=== PATIENT | female | born 1995 | race Caucasian/White ===

== ENCOUNTER 2017-04-12 18:00 | Emergency (ER) | payer MEDICAID, OTHER ==
[2017-04-12] MEDS ORDERED: FAMOTIDINE 20 MG TABLET PO ONE (19:27)
[2017-04-12] MEDS ORDERED: METHYLPREDNISOLONE INJ 125 MG/2 ML SDV IM ONE (19:27)
--- NOTE | 2017-04-12 19:33 | ER Document Report ---
HPI - HPI Pain Level: 2 Notes: Patient is a 22-year-old female presents the ED complaining of an allergic reaction to exposure to peanuts. Patient states that she does carry an EpiPen for this instance, but did not have to use at this time. Patient states that she came in contact with the patient that most of had peanuts as a snack prior. Patient states that she did take 50 mg of Benadryl 2-1/2 hours ago which helped. Patient states that it started out with a rash and some tightness in her throat, but both of those symptoms have improved since the Benadryl. Patient states she is still able to eat and drink without any difficulties. She has not had any trouble swallowing or breathing. Denies any fever, headache , chest pain, syncope, palpitations, cough, wheeze, shortness of breath, abdominal pain, nausea/vomiting/diarrhea, dysuria, joint pains. Patient states that she is allergic to prednisone as it caused a GI upset and made her "throat feel funny" but that was given during an allergic reaction previously. Patient states that she has had Solu-Medrol in the past without any difficulties. Denies any other significant past medical history or daily medications. Patient states she was very recently so she does not have a PCM. Denies any smoking or illicit drug use. - ROS Notes: REVIEW OF SYSTEMS: CONSTITUTIONAL : Denies fever, chills, or sweats. Denies recent illness. EENT: see hpi CARDIOVASCULAR: Denies chest pain. Denies palpitations or racing or irregular heart beat. Denies ankle edema. RESPIRATORY: see hpi GASTROINTESTINAL: Denies abdominal pain or distention. Denies nausea, vomiting , or diarrhea. Denies blood in vomitus, stools, or per rectum. Denies black, tarry stools. Denies constipation. GENITOURINARY: Denies difficulty urinating, painful urination, burning, frequency, blood in urine, or discharge. MUSCULOSKELETAL: Denies back or neck pain or stiffness. Denies joint pain or swelling. SKIN: see hpi NEUROLOGICAL: Denies confusion or altered mental status. Denies passing out or loss of consciousness. Denies dizziness or lightheadedness. Denies headache. Denies weakness or paralysis or loss of use of either side. Denies problems with gait or speech. Denies sensory loss, numbness, or tingling. Denies seizures. PSYCHIATRIC: Denies anxiety or stress. Denies depression, suicidal ideation, or homicidal ideation. ALL OTHER SYSTEMS REVIEWED AND NEGATIVE. Dictation was performed using [employer] voice recognition software - DERM Skin Color: Normal Past Medical History - Social History Smoking Status: Never Smoker Family History: Reviewed & Not Pertinent Patient has suicidal ideation: No Patient has homicidal ideation: No Renal/ Medical History: Denies: Hx Peritoneal Dialysis Vertical Provider Document - CONSTITUTIONAL Agree With Documented VS: Yes Notes: PHYSICAL EXAMINATION: GENERAL: Well-appearing, well-nourished and in no acute distress. HEAD: Atraumatic, normocephalic. EYES: Pupils equal round and reactive to light, extraocular movements intact, sclera anicteric, conjunctiva are normal. ENT: EAC clear b/l. TM's intact b/l without erythema, fluid, or perforation. Nares patent and without discharge. oropharynx clear without exudates. No tonsilar hypertrophy or erythema. Moist mucous membranes. No sinus tenderness. No facial swelling or angioedema noted. NECK: Normal range of motion, supple without lymphadenopathy. No rigidity. LUNGS: Breath sounds clear to auscultation bilaterally and equal. No wheezes rales or rhonchi. HEART: Regular rate and rhythm without murmurs, rubs, gallops. Musculoskeletal: FROM to passive/active. Strength 5+/5. Extremities: No cyanosis, clubbing, or edema b/l. Peripheral pulses 2+. Capillary refill less than 3 seconds. NEUROLOGICAL: Cranial nerves grossly intact. Normal speech, normal gait. Normal sensory, motor exams PSYCH: Normal mood, normal affect. SKIN: Warm, Dry, normal turgor, no rashes or lesions noted. - INFECTION CONTROL TRAVEL OUTSIDE OF THE [place] IN LAST 30 DAYS: No - RESPIRATORY O2 Sat by Pulse Oximetry: 100 Course - Re-evaluation Re-evalutation: 04/12/17 20:25 Patient is afebrile, well-hydrated, 22-year-old female presents to the ED status post mild allergic reaction based on H&P. Vitals are stable. PE otherwise unremarkable. Low suspicion for any sepsis, systemic illness, respiratory compromise, angioedema, or any other anaphylactic reaction at this time. Patient has already taken 50 mg of Benadryl prior to arrival. I will add Pepcid 20 mg p.o. today along with Solu-Medrol 125 mg IM. Patient states that she has tolerated Solu-Medrol in the past without any difficulties. Pt noticed improvement after 45 mins. Conservative measures otherwise for symptoms. Allergy precautions reviewed. Recheck/establish with a PCM this week. Return to ED with any worsening/concerning symptoms otherwise as reviewed in discharge. Patient is in agreement. - Vital Signs Vital signs: Temp Pulse Resp BP Pulse Ox 98.9 F 59 L 14 121/63 100 04/12/17 18:17 04/12/17 18:17 04/12/17 18:17 04/12/17 18:17 04/12/17 18:17 Discharge - Discharge Clinical Impression: Allergic reaction Qualifiers: Encounter type: initial encounter Qualified Code(s): T78.40XA - Allergy, unspecified, initial encounter Condition: Stable Disposition: HOME, SELF-CARE Instructions: Acute Allergic Reaction ([facility]), Use of Diphenhydramine, Steroid Medication Injection Additional Instructions: Maintain adequate fluid intake Use oral Benadryl and oral Pepcid as needed May apply topical Benadryl/cortisone as needed Avoidance of allergens encouraged Use EpiPen with any impending respiratory compromise Recheck/establish with a PCM this week Consider consult with an fly raiser lockstitch Return to the ED with any worsening symptoms and/or development of fever, headache, swelling of lips/tongue/throat, chest pain, palpitations, syncope, shortness of breath, trouble breathing, abdominal pain, n/v/d, numbness/tingling , or other worsening symptoms that are concerning to you. Referrals: [facility] [Provider Group] - Follow up as needed [facility] [Provider Group] - Follow up as needed [facility] [Provider Group] - Follow up as needed
[2017-04-12 20:34] VITALS: BP 102/54
== END 2017-04-12 20:34 | disposition home or self-care (01) ==
LOC: ER 18:00
DX: T78.1XXA Other adverse food reactions, not elsewhere classified, initial encounter (principal); R21 Rash and other nonspecific skin eruption; R09.89 Other specified symptoms and signs involving the circulatory and respiratory systems; X58.XXXA Exposure to other specified factors, initial encounter; Z88.8 Allergy status to other drugs, medicaments and biological substances
CPT/HCPCS: 99283; 96372; J2930

== ENCOUNTER → 2017-10-07 | Outpatient (CLI) | payer SELFPAY ==
--- NOTE | 2017-10-07 16:35 | RADIOLOGY REPORT (SQ) ---
EXAM DESCRIPTION: U/S [id number] TRNABD 1GES W/ODOP COMPLETED DATE/TIME: 10/07/2017 2:57 pm REASON FOR STUDY: FIRST TRIMESTER SIZE/DATES Z34.81 ENCOUNTER FOR SUPRVSN OF NORMAL , FIRS T TRIM COMPARISON: None. TECHNIQUE: Transabdominal static and realtime grayscale images acquired of the pelvis. Additional se lected spectral and color Doppler images recorded. All images stored on PACs. bHCG: Not applicable. LIMITATIONS: None. FINDINGS: FETUS: Living intrauterine . EGA: 10 week. KAYCEE: 05/05/2018. FHR: 162 beats per minute. SUBCHORIONIC BLEED: No. SIZE OF BLEED: Not applicable. UTERUS: No masses. No anomalies. CERVICAL LENGTH: 3.2 cm. Closed. RIGHT ADNEXA: Normal ovary with normal vascular flow. No adnexal free fluid. No adnexal masses. LEFT ADNEXA: Ovary not identified. No adnexal free fluid. No adnexal masses. FREE FLUID: None. OTHER: No other significant finding. IMPRESSION: LIVING INTRAUTERINE . EGA 10 WEEK. Trimester of : First - 0 to 13 weeks. TECHNICAL DOCUMENTATION: JOB ID: [id number] [employer]- All Rights Reserved
== END ==
LOC: RAD 14:17
PROVIDERS: ATTEND Nurse Practitioner Women's Health
DX: Z34.81 Encounter for supervision of other normal pregnancy, first trimester (principal)
CPT/HCPCS: 76801

== ENCOUNTER 2017-12-08 20:36 | Emergency (ER) | payer MEDICAID ==
[2017-12-08] MEDS ORDERED: DIPHENHYDRAMINE HCL 25 MG CAPSULE PO ONE (20:57)
[2017-12-08] MEDS ORDERED: FAMOTIDINE 20 MG TABLET PO ONE (20:57)
--- NOTE | 2017-12-08 20:57 | ER Document Report ---
ED Skin Rash/Insect Bite/Abscs - General Chief Complaint: Rash Stated Complaint: POSSIBLE ALLERGIC REACTION/RASH Time Seen by Provider: 12/08/17 20:50 Mode of Arrival: Ambulatory Information source: Patient Notes: Patient is a 22-year-old approximately 20 weeks who presents to the ER today for redness to bilateral lower legs that started this afternoon. Patient admits to using new dryer sheets but that is the only thing new that she can think of, no new soaps, detergents, clothes, pets or foods that she can think of that she may have used. She states that she took half a Benadryl and seems to be improving. She denies any rash anywhere else, shortness of breath, difficulty breathing or chest tightness. She denies any history of this before. TRAVEL OUTSIDE OF THE [place] IN LAST 30 DAYS: No - Related Data Allergies/Adverse Reactions: latex Allergy (Verified 12/08/17 20:37) prednisone Allergy (Verified 12/08/17 20:37) sulfamethoxazole [From Bactrim] Allergy (Verified 12/08/17 20:37) trimethoprim [From Bactrim] Allergy (Verified 12/08/17 20:37) Past Medical History - General Information source: Patient - Social History Smoking Status: Never Smoker Family History: Reviewed & Not Pertinent Renal/ Medical History: Denies: Hx Peritoneal Dialysis Past Surgical History: Reports: Hx Cholecystectomy, Hx Tonsillectomy - Immunizations Hx Diphtheria, Pertussis, Tetanus Vaccination: Yes Review of Systems - Review of Systems Constitutional: No symptoms reported EENT: No symptoms reported Cardiovascular: No symptoms reported Respiratory: No symptoms reported Gastrointestinal: No symptoms reported Genitourinary: No symptoms reported Female Genitourinary: No symptoms reported Musculoskeletal: No symptoms reported Skin: See HPI Hematologic/Lymphatic: No symptoms reported Neurological/Psychological: No symptoms reported Physical Exam - Vital signs Vitals: Temp Pulse Resp BP Pulse Ox 98.4 F 83 18 121/72 99 12/08/17 20:41 12/08/17 20:41 12/08/17 20:41 12/08/17 20:41 12/08/17 20:41 - Notes Notes: PHYSICAL EXAMINATION: GENERAL: Well-appearing and in no acute distress. HEAD: Atraumatic, normocephalic. EYES: Pupils equal round and reactive to light, extraocular movements intact, sclera anicteric, conjunctiva are normal. ENT: ear canals without erythema or foreign body, TMs pearly núñez with good bony landmarks, nares patent, oropharynx clear without exudates. Moist mucous membranes. Airway patent NECK: Normal range of motion, supple without lymphadenopathy LUNGS: CTAB and equal. No wheezes rales or rhonchi. HEART: Regular rate and rhythm without murmurs EXTREMITIES: Normal range of motion, no pitting edema. No cyanosis. NEUROLOGICAL: Cranial nerves grossly intact. Normal sensory/motor exams. PSYCH: Normal mood, normal affect. SKIN: Warm, Dry, normal turgor, no rashes or lesions noted Course - Re-evaluation Re-evalutation: 12/08/17 22:44 Patient has no rash on arrival to the emergency department. I did however give her Pepcid and another Benadryl to make sure rash did not return and she tolerated well. Patient was watched here for approximately an hour and a half and had no rash. Patient to continue Pepcid and Benadryl at home especially if rash returns. - Vital Signs Vital signs: Temp Pulse Resp BP Pulse Ox 98.4 F 83 18 121/72 99 12/08/17 20:41 12/08/17 20:41 12/08/17 20:41 12/08/17 20:41 12/08/17 20:41 Discharge - Discharge Clinical Impression: Rash and nonspecific skin eruption Condition: Stable Disposition: HOME, SELF-CARE Additional Instructions: Keep taking Benadryl every 4 hours as needed for rash. Return immediately for any new or worsening symptoms. Follow up with primary care provider, call tomorrow to make followup appointment. Prescriptions: Famotidine [Pepcid 20 mg Tablet] 20 mg PO BID #12 tablet
[2017-12-08 23:05] VITALS: BP 103/54
== END 2017-12-08 23:11 | disposition home or self-care (01) ==
LOC: ER 20:36
DX: O26.899 Other specified pregnancy related conditions, unspecified trimester (principal); R21 Rash and other nonspecific skin eruption; Z3A.00 Weeks of gestation of pregnancy not specified; Z91.040 Latex allergy status; Z88.8 Allergy status to other drugs, medicaments and biological substances; Z88.1 Allergy status to other antibiotic agents
CPT/HCPCS: 99282; J3490 ×2

== ENCOUNTER 2017-12-17 14:47 | Outpatient (CLI) | payer MEDICAID ==
[2017-12-17 15:41] LABS: APPEARANCE,URINE SLIGHTLY-CLOUDY; BILIRUBIN,URINE NEGATIVE (NEGATIVE); COLOR,URINE YELLOW; GLUCOSE, URINE NEGATIVE (NEGATIVE); KETONES,URINE NEGATIVE (NEGATIVE); LEUKOCYTE ESTERASE,URINE SMALL (NEGATIVE); NITRITE,URINE NEGATIVE (NEGATIVE); PROTEIN,URINE NEGATIVE (NEGATIVE); URINE SPECIFIC GRAVITY 1.009; UROBILINOGEN,URINE NEGATIVE mg/dL (<2.0)
[2017-12-17 15:59] LABS: URINE AMPHETAMINES SCREEN NEGATIVE; URINE BARBITURATES SCREEN NEGATIVE; URINE BENZODIAZEPINES SCREEN NEGATIVE; URINE COCAINE SCREEN NEGATIVE; URINE MARIJUANA (THC) SCREEN NEGATIVE; URINE METHADONE SCREEN NEGATIVE; URINE PHENCYCLIDINE SCREEN NEGATIVE
--- NOTE | 2017-12-17 17:47 | RADIOLOGY REPORT (SQ) ---
EXAM DESCRIPTION: U/S OB LIMITED COMPLETED DATE/TIME: 12/17/2017 4:34 pm REASON FOR STUDY: cervical length, 20.5week IUP, cervical length COMPARISON: 10/07/2017 TECHNIQUE: Limited transvaginal and transabdominal grayscale ultrasound for evaluation of specific r equested obstetrical parameters. LIMITATIONS: None. FINDINGS: CERVICAL LENGTH: 3.8 cm Closed. FELICE: 21.2 cm. FHR: 149 beats per minute. PRESENTATION: Cephalic. OTHER: Anterior placenta without previa or abruption. IMPRESSION: LIMITED OBSTETRICAL ULTRASOUND WITH MEASURED PARAMETERS DELINEATED ABOVE. Trimester of : Second trimester - 13 weeks 1 day to 27 weeks 6 days. TECHNICAL DOCUMENTATION: JOB ID: [id number]- All Rights Reserved Reading location - IP/workstation name: [email or web address]
== END 2017-12-17 18:00 | disposition home or self-care (01) ==
LOC: EDSTATUS 14:52 → LC 14:56
PROVIDERS: ATTEND Obstetrics & Gynecology
PROC: 4A1HXCZ Monitoring of Products of Conception, Cardiac Rate, External Approach (ICD-10-PCS; principal; 2017-12-17)
DX: O46.92 Antepartum hemorrhage, unspecified, second trimester (principal); Z3A.20 20 weeks gestation of pregnancy
CPT/HCPCS: 76815; 80307; 81001

== ENCOUNTER 2018-05-01 17:38 | Inpatient (IN) | payer MEDICAID ==
[2018-05-01] MEDS: RINGERS SOLUTION,LACTATED 1,000 ML IV PRN ×3 (18:30→23:59)
[2018-05-01 19:04] LABS: APPEARANCE,URINE CLEAR; BILIRUBIN,URINE NEGATIVE (NEGATIVE); COLOR,URINE STRAW; GLUCOSE, URINE NEGATIVE (NEGATIVE); KETONES,URINE NEGATIVE (NEGATIVE); LEUKOCYTE ESTERASE,URINE TRACE (NEGATIVE); NITRITE,URINE NEGATIVE (NEGATIVE); PROTEIN,URINE NEGATIVE (NEGATIVE); URINE SPECIFIC GRAVITY 1.005; UROBILINOGEN,URINE NEGATIVE mg/dL (<2.0)
[2018-05-01] MEDS ORDERED: ZOLPIDEM TARTRATE 5 MG TABLET PO PRN (19:18)
[2018-05-01] MEDS ORDERED: DINOPROSTONE 10 MG VAGINAL INSERT.SR PV ONE (19:18)
[2018-05-01 19:36] LABS: URINE AMPHETAMINES SCREEN NEGATIVE; URINE BARBITURATES SCREEN NEGATIVE; URINE BENZODIAZEPINES SCREEN NEGATIVE; URINE COCAINE SCREEN NEGATIVE; URINE MARIJUANA (THC) SCREEN NEGATIVE; URINE METHADONE SCREEN NEGATIVE; URINE PHENCYCLIDINE SCREEN NEGATIVE
[2018-05-01 19:54] LABS: ABSOLUTE LYMPHOCYTES (AUTO) 1.7 10^3/uL (0.5-4.7); ABSOLUTE MONOCYTES (AUTO) 0.7 10^3/uL (0.1-1.4); BASOPHILS % (AUTO) 0.2 % (0-2); EOSINOPHILS % (AUTO) 0.3 % (0-6); HEMATOCRIT 28.5 % (36.0-47.0); HEMOGLOBIN 9.6 g/dL (12.0-15.5); LYMPHOCYTES % (AUTO) 11.8 % (13-45); MEAN CORPUSCULAR HEMOGLOBIN 28.2 pg (27.0-33.4); MEAN CORPUSCULAR HGB CONC 33.6 g/dL (32.0-36.0); MEAN CORPUSCULAR VOLUME 84 fl (80-97); MONOCYTES % (AUTO) 4.7 % (3-13); PLATELET COUNT 270 10^3/uL (150-450); RED BLOOD COUNT 3.39 10^6/uL (3.72-5.28); RED CELL DISTRIBUTION WIDTH 14.1 % (11.5-14.0); TOTAL CELLS COUNTED % (AUTO) 100 %; WHITE BLOOD COUNT 14.5 10^3/uL (4.0-10.5)
[2018-05-01] MEDS ORDERED: DINOPROSTONE 10 MG VAGINAL INSERT.SR ONE (20:09)
[2018-05-02] MEDS ORDERED: MAG HYDROX/AL HYDROX/SIMETH SUSP 30 ML UDCUP PO ONE (02:16)
[2018-05-02] MEDS ORDERED: MAG HYDROX/AL HYDROX/SIMETH SUSP 30 ML UDCUP ONE (02:20)
[2018-05-02] MEDS ORDERED: LIDOCAINE 1% INJ-PF (10 MG/ML) 30 ML SDV ONE (10:12)
[2018-05-02] MEDS ORDERED: OXYTOCIN/NORMAL SALINE 20 UNIT/1,000 ML RTUINJ ONE (10:12)
[2018-05-02] MEDS ORDERED: MISOPROSTOL 0.2 MG TABLET ONE (10:12)
[2018-05-02] MEDS ORDERED: MISOPROSTOL 0.1 MG TABLET PO ONE (10:17)
[2018-05-02] MEDS ORDERED: MISOPROSTOL 0.1 MG TABLET PV ONE (10:19)
[2018-05-02] MEDS ORDERED: MISOPROSTOL 0.1 MG TABLET ONE (10:30)
[2018-05-02] MEDS: RINGERS SOLUTION,LACTATED 1,000 ML IV PRN ×3 (10:35→20:41)
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
[2018-05-02] MEDS ORDERED: NALBUPHINE HCL INJ 10 MG/1 ML AMPULE ONE (15:22)
[2018-05-02] MEDS ORDERED: PROMETHAZINE HCL INJ 25 MG/1 ML VIAL ONE (15:22)
[2018-05-02] MEDS ORDERED: FENTANYL CITRATE INJ/PF 100 MCG/2 ML AMPUL ONE (17:21)
[2018-05-02] MEDS ORDERED: EPHEDRINE SULFATE INJ 50 MG/1 ML AMPULE ONE (17:21)
[2018-05-02] MEDS ORDERED: PHENYLEPHRINE HCL INJ/PF 10 MG/1 ML SDV ONE (17:21)
[2018-05-02] MEDS ORDERED: FENTANYL/BUPIVACAINE/NS/PF 300 MCG/150 ML RTUINJ EPI ONE (17:21)
[2018-05-02] MEDS ORDERED: BUPIVACAINE HCL 0.25 % INJ/PF (2.5 MG/1 ML) 30 ML VIAL ONE (17:21)
[2018-05-02] MEDS ORDERED: OXYTOCIN/NORMAL SALINE 20 UNIT/1,000 ML RTUINJ IV PRN (19:26)
[2018-05-03] MEDS ORDERED: ACETAMINOPHEN WITH CODEINE #3 TABLET PO PRN ×2 (04:02)
[2018-05-03] MEDS ORDERED: OXYTOCIN/NORMAL SALINE 20 UNIT/1,000 ML RTUINJ IV PRN (04:02)
[2018-05-03] MEDS ORDERED: GLYCERIN/WITCH HAZEL LEAF 1 EACH MED..PAD TP PRN (04:02)
[2018-05-03] MEDS ORDERED: PROMETHAZINE HCL 25 MG SUPP.RECT PR PRN (04:02)
[2018-05-03] MEDS ORDERED: DIPHENHYDRAMINE HCL 25 MG CAPSULE PO PRN (04:02)
[2018-05-03] MEDS ORDERED: PSEUDOEPHEDRINE HCL 30 MG TABLET PO PRN (04:02)
[2018-05-03] MEDS ORDERED: DIBUCAINE 1% OINTMENT 28 GM TP PRN (04:02)
[2018-05-03] MEDS ORDERED: ACETAMINOPHEN 650 MG SUPP.RECT PR PRN (04:02)
[2018-05-03] MEDS ORDERED: PROMETHAZINE HCL INJ 25 MG/1 ML VIAL IV PRN (04:02)
[2018-05-03] MEDS ORDERED: NA PHOS,M-B/NA PHOS,DI-BA (ADULT) 133 ML ENEMA PR PRN (04:02)
[2018-05-03] MEDS ORDERED: PROMETHAZINE HCL 25 MG TABLET PO PRN (04:02)
[2018-05-03] MEDS ORDERED: BENZOCAINE/MENTHOL AEROSOL SPRAY 56 ML TOP PRN (04:02)
[2018-05-03] MEDS ORDERED: MEASLES,MUMPS&RUBELLA VACC/PF 0.5 ML VIAL SUBCUT PRN (04:02)
[2018-05-03] MEDS ORDERED: MAGNESIUM HYDROXIDE SUSP 30 ML UDCUP PO PRN (04:02)
[2018-05-03] MEDS ORDERED: ZOLPIDEM TARTRATE 5 MG TABLET PO PRN (04:02)
[2018-05-03] MEDS ORDERED: DIPH/PERTUSS(ACELL)/TETANUS VAC/PF 0.5 ML SYR (>=10YO) IM PRN (04:02)
[2018-05-03] MEDS ORDERED: ACETAMINOPHEN 325 MG TABLET ONE (04:16)
[2018-05-03] MEDS ORDERED: IBUPROFEN 800 MG TABLET ONE (05:54)
[2018-05-03] MEDS: IBUPROFEN 800 MG TABLET PO SCH ×3 (05:57→22:43)
--- NOTE | 2018-05-03 06:07 | Delivery Summary ---
Del Sum A-C Datetime Report Generated by CPN: 05/03/2018 06:06 DELIVERY PERSONNEL DELIVERY PERSONNEL: [id number] Delivery Doctor:: Marylou Herrera MD Labor and Delivery Nurse:: Lida Rivers RN Nursery Nurse:: Sandra Bay RN Waterfront Director/TELEPHONE ORDER CLERK: Amy Vasques, TELEPHONE ORDER CLERK MATERNAL INFORMATION Delivery Anesthesia: None Medications After Delivery: Pitocin Drip 20 Units/1000ml NSS Estimated Blood Loss (ml): 200 Maternal Complications: None LABOR SUMMARY EDC: 05/06/2018 00:00 No. Babies in Womb: 1 Attempted: No Labor Anesthesia: Epidural LABOR INFORMATION Reason for Induction: Maternal Diabetes Onset of Labor: 05/02/2018 22:49 Complete Dilatation: 05/03/2018 03:25 Cervical Ripening Agents: Cervidil; Edwards Balloon Oxytocin: Induction Group B Beta Strep: Negative Antibiotics # of Doses: 0 Steroids Given: None Reason Steroids Not Administered: Not Applicable MEMBRANES Membranes Rupture Method: Artificial Rupture of Membranes: 05/02/2018 22:49 Length of Rupture (hr): 5.08 Amniotic Fluid Color: Clear Amniotic Fluid Amount: Moderate Amniotic Fluid Odor: Normal STAGES OF LABOR Stage 1 hr: 4 Stage 1 min: 36 Stage 2 hr: 0 Stage 2 min: 29 Stage 3 hr: 0 Stage 3 min: 2 Total Time in Labor hr: 5 Total Time in Labor min: 7 VAGINAL DELIVERY Episiotomy: None Laceration #1: None Laceration Extension #1: N/A Laceration Repair: Not Applicable Sponge Count Correct: N/A Sharps Count Correct: N/A CSECTION DELIVERY Primary Indication: N/A Secondary Indication: N/A CSection Incidence: N/A Labor: N/A Elective: N/A CSection Incision: N/A BABY A INFORMATION Infant Delivery Date/Time: 05/03/2018 03:54 Method of Delivery: Vaginal Born in Route : No (Annotations: Data stored by CPN on behalf of user) : N/A (Annotations: Data stored by CPN on behalf of user) Forceps: N/A Vacuum Extraction: N/A Shoulder Dystocia : Yes SHOULDER DYSTOCIA BABY A Delivery of Head: 05/03/2018 03:53 Time Head to Delivery : 1.0 1st Intervention to Resolve: McRobert's Maneuver 2nd Intervention to Resolve: Suprapubic Pressure 3rd Intervention to Resolve: Gentle Attempt at Traction, Assisted by Maternal Expulsive Efforts Verify NO Fundal Pressure: No Fundal Pressure Applied Arm Under Symphisis at Del: Right PRESENTATION/POSITION BABY A Presentation: Cephalic Cephalic Presentation: Vertex Vertex Position: Left Occipital Anterior Breech Presentation: N/A PLACENTA INFORMATION BABY A Placenta Delivery Time : 05/03/2018 03:56 Placenta Method of Delivery: Spontaneous Placenta Status: Delivered SCORES BABY A Heart Rate 1 min: >100 bpm Resp Effort 1 min: Good Cry Reflex Irritability 1 min: Cough or Sneeze or Pulls Away Muscle Tone 1 min: Some Flexion of Extremities Color 1 min: Blue/Pale Resuscitation Effort 1 min: Tactile Stimulation SCORE 1 MIN: 7 Heart Rate 5 min: >100 bpm Resp Effort 5 min: Good Cry Reflex Irritability 5 min: Cough or Sneeze or Pulls Away Muscle Tone 5 min: Some Flexion of Extremities Color 5 min: Body Nikep, Extremities Blue SCORE 5 MIN: 8 INFORMATION BABY A Gestational Age at Delivery: 39.4 Gestational Status: Full Term- 39- 40.6 Weeks Outcome : Liveborn Infant Condition : Stable Sex: Male IDENTIFICATION BABY A Verification Date/Time: 05/03/2018 04:12 ID Band Number: [id number] Mother's Name Verified: Yes RN Verifying Infant: CKate Rivers, RNKate SKate Narayantiblatasha, RN WEIGHT/LENGTH BABY A Infant Birthweight (gm): 3910 Weight (lb): 8 Weight (oz): 10 Infant Length (in): 20.50 Length (cm): 52.07 CORD INFORMATION BABY A No. Cord Vessels: 3 Nuchal Cord : N/A Cord Blood Taken: Yes-For Storage (Mom's Blood type +) Suction: Mouth ASSESSMENT BABY A Complications: Shoulder Dystocia Infant Complications- Other: shoulder dystocia of 1 minute 15 seconds, terminal [facility] Physical Findings at Delivery: Molding of the Head; Bruising Physical Findings- Other: bruise on upper lip Infant Respirations: Appears Normal Skin to Skin: Yes Finisher Wallboard And Plasterboard/ALS Called : No Infant Care By: Hany Bay RN Transferred To: Remains with Mother BABY B INFORMATION : N/A SIGNATURES Signature: with User ID: [email or web address]
--- NOTE | 2018-05-03 06:07 | Warning Signs in Babies ---
VOD Warning Signs Datetime Report Generated by [facility]: 05/03/2018 06:06 VOD#608 -Warning Signs in Babies: Viewed with Parent(s)/Family (12/17/2017 15:20:Lida Rivers RN)
[2018-05-03] MEDS: SENNOSIDES/DOCUSATE 8.6-50 MG 1 EACH TABLET PO SCH (10:35)
[2018-05-03] MEDS: PRENATAL VITAMIN W DHA CAPSULE PO SCH (10:35)
[2018-05-03] MEDS: FERROUS SULFATE 325 MG TABLET PO SCH ×2 (10:35→17:36)
[2018-05-03] MEDS: DOCUSATE SODIUM 100 MG CAPSULE PO SCH ×2 (10:35→17:36)
[2018-05-03] MEDS: FAMOTIDINE 20 MG TABLET PO SCH ×2 (10:35→22:43)
[2018-05-04] MEDS: IBUPROFEN 800 MG TABLET PO SCH ×3 (06:03→21:28)
[2018-05-04 07:46] LABS: HEMATOCRIT 27.5 % (36.0-47.0); HEMOGLOBIN 9.1 g/dL (12.0-15.5); MEAN CORPUSCULAR HEMOGLOBIN 28.1 pg (27.0-33.4); MEAN CORPUSCULAR HGB CONC 33.1 g/dL (32.0-36.0); MEAN CORPUSCULAR VOLUME 85 fl (80-97); PLATELET COUNT 220 10^3/uL (150-450); RED BLOOD COUNT 3.24 10^6/uL (3.72-5.28); RED CELL DISTRIBUTION WIDTH 14.6 % (11.5-14.0)
[2018-05-04] MEDS: FAMOTIDINE 20 MG TABLET PO SCH ×2 (09:49→21:29)
[2018-05-04] MEDS: FERROUS SULFATE 325 MG TABLET PO SCH ×2 (09:49→17:43)
[2018-05-04] MEDS: DOCUSATE SODIUM 100 MG CAPSULE PO SCH ×2 (09:49→17:43)
[2018-05-04] MEDS: SENNOSIDES/DOCUSATE 8.6-50 MG 1 EACH TABLET PO SCH (09:49)
[2018-05-04] MEDS: PRENATAL VITAMIN W DHA CAPSULE PO SCH (09:49)
--- NOTE | 2018-05-04 11:29 | PDOC PROGRESS REPORT ---
Subjective-OB Progress Note for:: 05/04/18 Subjective: Doing well, sitting up holding baby, fob in room,, eating well, voiding, scant bleeding Physical Exam (OB) Vital Signs: Temp Pulse Resp BP Pulse Ox 97.9 F 65 18 108/63 98 05/04/18 07:46 05/04/18 07:46 05/04/18 07:46 05/04/18 07:46 05/04/18 07:46 Intake & Output 05/03/18 05/04/18 05/05/18 06:59 06:59 06:59 Intake Total 2300 300 Balance 2300 300 - PIH/Pre-Eclampsia DTR's: 2 + Clonus: Negative Headache: Absent Epigastric Pain: No Visual Changes: No - Lochia Lochia Amount: Small 10-25 ml Lochia Color: Rubra/Red - Abdomen Description: Tender, Soft Hernia Present: No Fundal Description: Firm Fundal Height: u/u - u/2 Objective-Diagnostic Laboratory: 05/04/18 07:19 05/04/18 07:19 WBC 12.0 H RBC 3.24 L Hgb 9.1 L Hct 27.5 L MCV 85 MCH 28.1 MCHC 33.1 RDW 14.6 H Plt Count 220 Assessment and Plan(PN) - Assessment and Plan (1) Gestational diabetes mellitus Qualifiers: Gestational diabetes mellitus control: diet-controlled Is this a current diagnosis for this admission?: Yes (2) Depression Qualifiers: Depression Type: unspecified Qualified Code(s): F32.9 - Major depressive disorder, single episode, unspecified Is this a current diagnosis for this admission?: Yes (3) Anxiety Is this a current diagnosis for this admission?: Yes (4) Delivery normal Is this a current diagnosis for this admission?: Yes - Time Spent with Patient Time with patient: Less than 15 minutes Medications reviewed and adjusted accordingly: Yes - Disposition Anticipated Discharge: Home Within: within 48 hours
[2018-05-05] MEDS: IBUPROFEN 800 MG TABLET PO SCH (05:48)
[2018-05-05] MEDS: FAMOTIDINE 20 MG TABLET PO SCH (09:23)
[2018-05-05] MEDS: DOCUSATE SODIUM 100 MG CAPSULE PO SCH (09:23)
[2018-05-05] MEDS: FERROUS SULFATE 325 MG TABLET PO SCH (09:23)
[2018-05-05] MEDS: PRENATAL VITAMIN W DHA CAPSULE PO SCH (09:23)
[2018-05-05] MEDS: SENNOSIDES/DOCUSATE 8.6-50 MG 1 EACH TABLET PO SCH (09:23)
[2018-05-05] MEDS ORDERED: MEDROXYPROGESTERONE ACET INJ 150 MG/1 ML VIAL IM ONE (10:22)
--- NOTE | 2018-05-05 10:31 | PDOC DISCHARGE SUMMARY ---
Final Diagnosis Discharge Date: 05/05/18 - Final Diagnosis (1) Anxiety Is this a current diagnosis for this admission?: Yes (2) Delivery normal Is this a current diagnosis for this admission?: Yes (3) Depression Is this a current diagnosis for this admission?: Yes (4) Gestational diabetes mellitus Is this a current diagnosis for this admission?: Yes Discharge Data - Discharge Medication Prescriptions: Ibuprofen [Motrin 800 mg Tablet] 800 mg PO Q8 #90 tablet Home Medications: 105/Iron/Folic AC/Dha [Prena1 True Combo Pack] 1 each PO DAILY Ibuprofen [Motrin 800 mg Tablet] 800 mg PO Q8 #90 tablet 05/05/18 Reason(s) for Admission: Onset of Labor Procedures: None Intrapartum Procedure(s): Spontaneous Vaginal Delivery - Diagnosis Test Laboratory: Temp Pulse Resp BP Pulse Ox 98.0 F 62 18 128/74 H 99 05/05/18 07:50 05/05/18 07:50 05/05/18 07:50 05/05/18 07:50 05/05/18 07:50 05/01/18 05/01/18 05/04/18 17:45 19:19 07:19 RBC 3.39 L 3.24 L Hgb 9.6 L 9.1 L Hct 28.5 L 27.5 L Urine Opiates Screen NEGATIVE - Discharge information/Instructions Discharge Activity: Balance Activity w/Rest, Energy Conservation, No Lifting/ Push/Pulling, Pelvic Rest, Slowly Increase Activity, No tub bath Discharge Diet: Regular Disposition: HOME, SELF-CARE Follow up with: [facility] in: 3
[2018-05-05 11:36] VITALS: BP 139/75
[2018-05-06] MEDS ORDERED: PRENATAL PO SCH (10:00)
[2018-05-06] MEDS ORDERED: DHA PO SCH (10:00)
[2018-05-06] MEDS ORDERED: FOLIC AC PO SCH (10:00)
[2018-05-06] MEDS ORDERED: IRON PO SCH (10:00)
[2018-05-06] MEDS ORDERED: PRENATAL VITAMIN W DHA CAPSULE PO SCH (11:00)
== END 2018-05-05 13:00 | disposition home or self-care (01) | DRG 775 ==
LOC: LR 17:38 → 2S 05-03 06:14
PROVIDERS: ADMIT Obstetrics & Gynecology Gynecology; ATTEND Obstetrics & Gynecology Gynecology
PROC: 4A1HXCZ Monitoring of Products of Conception, Cardiac Rate, External Approach (ICD-10-PCS; 2018-05-01)
PROC: 3E0P7VZ Introduction of Hormone into Female Reproductive, Via Natural or Artificial Opening (ICD-10-PCS; 2018-05-02)
PROC: 3E033VJ Introduction of Other Hormone into Peripheral Vein, Percutaneous Approach (ICD-10-PCS; 2018-05-02)
PROC: 10907ZC Drainage of Amniotic Fluid, Therapeutic from Products of Conception, Via Natural or Artificial Opening (ICD-10-PCS; 2018-05-02)
PROC: 10E0XZZ Delivery of Products of Conception, External Approach (ICD-10-PCS; principal; 2018-05-03)
DX: O24.420 Gestational diabetes mellitus in childbirth, diet controlled (principal); O99.344 Other mental disorders complicating childbirth; F41.9 Anxiety disorder, unspecified; F32.9 Major depressive disorder, single episode, unspecified; O66.0 Obstructed labor due to shoulder dystocia; Z88.2 Allergy status to sulfonamides; Z88.8 Allergy status to other drugs, medicaments and biological substances; Z88.3 Allergy status to other anti-infective agents; Z91.040 Latex allergy status; Z91.010 Allergy to peanuts; Z87.891 Personal history of nicotine dependence; Z3A.39 39 weeks gestation of pregnancy; Z37.0 Single live birth
CPT/HCPCS: 36415; 80307; 81005; 82962; 85025; 85027; 86592; 86850; 86900; 86901; 94760; C1758; J1050; J2300; J2370; J2550; J2590; J3010; J3490

== ENCOUNTER 2020-06-14 14:22 | Emergency (ER) | payer OTHER ==
[2020-06-14] MEDS ORDERED: ACETAMINOPHEN 325 MG TABLET PO ONE (16:15)
--- NOTE | 2020-06-14 16:55 | RADIOLOGY REPORT (SQ) ---
EXAM DESCRIPTION: SHOULDER LEFT 2 OR MORE VIEWS IMAGES COMPLETED DATE/TIME: 06/14/2020 4:35 pm REASON FOR STUDY: pain COMPARISON: None. NUMBER OF VIEWS: Three views. TECHNIQUE: Internal rotation, external rotation, and Y view images acquired of the left shoulder. LIMITATIONS: None. FINDINGS: MINERALIZATION: Normal. BONES: No acute fracture. No worrisome bone lesions. JOINTS: No dislocation. VISUALIZED LUNGS AND RIBS: No pneumothorax. No rib fracture. SOFT TISSUES: No radiopaque foreign body. OTHER: No other significant finding. IMPRESSION: NEGATIVE STUDY OF THE LEFT SHOULDER. NO RADIOGRAPHIC EVIDENCE OF ACUTE INJURY. TECHNICAL DOCUMENTATION: JOB ID: [id number] 2010 [employer]- All Rights Reserved Reading location - IP/workstation name: [email or web address]
--- NOTE | 2020-06-14 16:56 | RADIOLOGY REPORT (SQ) ---
EXAM DESCRIPTION: T SPINE AP/LAT IMAGES COMPLETED DATE/TIME: 06/14/2020 4:35 pm REASON FOR STUDY: pain COMPARISON: None. NUMBER OF VIEWS: Two views. TECHNIQUE: AP and lateral radiographic images acquired of the thoracic spine. LIMITATIONS: None. FINDINGS: MINERALIZATION: Normal. ALIGNMENT: Normal. No scoliosis. VERTEBRAE: No fracture or bone lesion. Maintained height, normal segmentation. DISCS: No significant loss of height or significant narrowing. No large osteophytes. HARDWARE: None in the spine. MEDIASTINUM AND SOFT TISSUES: Normal heart size and aortic contour. No soft tissue abnormality. VISUALIZED LUNG TAI: Clear. OTHER: No other significant finding. IMPRESSION: NO SIGNIFICANT RADIOGRAPHIC FINDING IN THE THORACIC SPINE. TECHNICAL DOCUMENTATION: JOB ID: [id number] 2010 [employer]- All Rights Reserved Reading location - IP/workstation name: [email or web address]
--- NOTE | 2020-06-14 16:57 | RADIOLOGY REPORT (SQ) ---
EXAM DESCRIPTION: L SPINE WHOLE IMAGES COMPLETED DATE/TIME: 06/14/2020 4:35 pm REASON FOR STUDY: pain COMPARISON: None. NUMBER OF VIEWS: Five views including obliques. TECHNIQUE: AP, lateral, oblique, and sacral radiographic images acquired of the lumbar spine. LIMITATIONS: None. FINDINGS: MINERALIZATION: Normal. SEGMENTATION: Normal. No transitional anatomy. ALIGNMENT: Normal. VERTEBRAE: Maintained height. No fracture or worrisome bone lesion. DISCS: Preserved height. No significant osteophytes or end plate irregularity. POSTERIOR ELEMENTS: Pedicles and facets are intact. No pars defect or posterior arch defects. HARDWARE: None in the spine. PARASPINAL SOFT TISSUES: Calcification overlies the transverse process of L3 on the left. Possibly i n the proximal left ureter. PELVIS: Intact as visualized. No fractures or worrisome bone lesions. SI joints intact. OTHER: No other significant finding. IMPRESSION: NORMAL 5 VIEW LUMBAR SPINE. Possible left ureteral calculus. TECHNICAL DOCUMENTATION: JOB ID: [id number] 2010 [employer]- All Rights Reserved Reading location - IP/workstation name: [email or web address]
--- NOTE | 2020-06-14 16:57 | RADIOLOGY REPORT (SQ) ---
EXAM DESCRIPTION: CERV SP 4 OR 5 VIEWS IMAGES COMPLETED DATE/TIME: 06/14/2020 4:35 pm REASON FOR STUDY: pain COMPARISON: None. NUMBER OF VIEWS: Five views. TECHNIQUE: AP, lateral, obliques and odontoid radiographic images acquired of the cervical spine. LIMITATIONS: None. FINDINGS: MINERALIZATION: Normal. ALIGNMENT: Anatomic. VERTEBRAE: Vertebral bodies of normal height. DISCS: No significant osteophytes or sclerosis. Disc height maintained. FORAMINA: No osteophytes or foraminal narrowing. LATERAL AND POSTERIOR ELEMENTS: Facets, lateral masses and spinous processes without significant find ings. HARDWARE: None in the spine. SOFT TISSUES: No masses or calcifications. Lung apices clear. OTHER: No other significant finding. IMPRESSION: NO SIGNIFICANT RADIOGRAPHIC FINDING IN THE CERVICAL SPINE. TECHNICAL DOCUMENTATION: JOB ID: [id number] 2010 [employer]- All Rights Reserved Reading location - IP/workstation name: [email or web address]
[2020-06-14] MEDS ORDERED: ACETAMINOPHEN 325 MG TABLET ONE (17:11)
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
[2020-06-14 17:39] LABS: APPEARANCE,URINE TURBID; BILIRUBIN,URINE NEGATIVE (NEGATIVE); COLOR,URINE YELLOW; GLUCOSE, URINE NEGATIVE (NEGATIVE); KETONES,URINE NEGATIVE (NEGATIVE); LEUKOCYTE ESTERASE,URINE MODERATE (NEGATIVE); NITRITE,URINE NEGATIVE (NEGATIVE); PROTEIN,URINE 100 mg/dL (NEGATIVE); URINE SPECIFIC GRAVITY 1.015; UROBILINOGEN,URINE NEGATIVE mg/dL (<2.0)
--- NOTE | 2020-06-14 19:01 | RADIOLOGY REPORT (SQ) ---
EXAM DESCRIPTION: CT ABD/PELVIS NO ORAL OR IV IMAGES COMPLETED DATE/TIME: 06/14/2020 5:43 pm REASON FOR STUDY: back pain. Patient states no abdominal pain. COMPARISON: None. TECHNIQUE: CT scan of the abdomen and pelvis performed without intravenous or oral contrast. Images reviewed with lung, soft tissue, and bone windows. Reconstructed coronal and sagittal MPR images revi ewed. All images stored on PACS. All CT scanners at this facility use dose modulation, iterative reconstruction, and/or weight based d osing when appropriate to reduce radiation dose to as low as reasonably achievable (ALARA). [facility]: Dose Right [facility]: CareDose [facility]: Dose Right [facility]: Teradose 4D [facility]: Smart CrowdTransfer RADIATION DOSE: CT Rad equipment meets quality standard of care and radiation dose reduction techniq ues were employed. CTDIvol: 4.9 mGy. DLP: 253 mGy-cm.mGy. LIMITATIONS: None. FINDINGS: LOWER CHEST: No significant findings. No nodules or infiltrates. NON-CONTRASTED LIVER, SPLEEN, ADRENALS: Evaluation limited by lack of IV contrast. No identified sign ificant masses. PANCREAS: No masses. No peripancreatic inflammatory changes. GALLBLADDER: Surgically absent. RIGHT KIDNEY AND URETER: No suspicious masses. Assessment limited by lack of IV contrast. No signif icant calcifications. No hydronephrosis or hydroureter. LEFT KIDNEY AND URETER: No suspicious masses. Assessment limited by lack of IV contrast. No signifi cant calcifications. No hydronephrosis or hydroureter. AORTA AND RETROPERITONEUM: No aneurysm. No retroperitoneal masses or adenopathy. BOWEL AND PERITONEAL CAVITY: No obvious masses or inflammatory changes. No free fluid. APPENDIX: Normal. PELVIS, BLADDER, AND ABDOMINAL WALL:The urinary bladder is moderately distended. Uterus and ovaries have normal size. No adnexal mass. No pelvic adenopathy or fluid. BONES: No significant findings. OTHER: No other significant finding. IMPRESSION: NO SIGNIFICANT OR ACUTE PROCESS IN THE ABDOMEN OR PELVIS. COMMENT: Quality ID # [id number]: Final reports with documentation of one or more dose reduction techniques (e.g., Automated exposure control, adjustment of the mA and/or kV according to patient size, use of iterative reconstruction technique) TECHNICAL DOCUMENTATION: JOB ID: [id number] [employer]- All Rights Reserved Reading location - IP/workstation name: [email or web address]
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
[2020-06-14 20:21] VITALS: BP 128/76
== END 2020-06-14 20:21 | disposition home or self-care (01) ==
LOC: ER 14:22
DX: S29.019A Strain of muscle and tendon of unspecified wall of thorax, initial encounter (principal); S16.1XXA Strain of muscle, fascia and tendon at neck level, initial encounter; S39.012A Strain of muscle, fascia and tendon of lower back, initial encounter; S40.012A Contusion of left shoulder, initial encounter; N39.0 Urinary tract infection, site not specified; R51 Headache; V49.49XA Driver injured in collision with other motor vehicles in traffic accident, initial encounter
CPT/HCPCS: 72050; 72070; 72110; 74176; 81001; 81025; 99285

== ENCOUNTER 2020-06-16 22:26 | Emergency (ER) | payer OTHER ==
[2020-06-16] MEDS ORDERED: ONDANSETRON 4 MG TAB.RAPDIS PO ONE (22:56)
[2020-06-16] MEDS ORDERED: PHENAZOPYRIDINE HCL 200 MG TABLET PO ONE (22:56)
[2020-06-16] MEDS ORDERED: HYDROCODONE/ACETAMINOPHEN 5-325 MG TABLET PO ONE (22:56)
--- NOTE | 2020-06-16 22:58 | ER Document Report ---
ED Medical Screen (RME) - General Chief Complaint: Flank Pain Stated Complaint: FLANK PAIN Mode of Arrival: Ambulatory Information source: Patient Notes: 25-year-old female was here couple nights ago diagnosed with a UTI. They thought they might have seen a kidney stone on a plain film. Said a CT scan was done which proved the patient did not have a kidney stone. She was subsequently treated with cephalexin for UTI. Patient reports her pain is gotten worse since leaving here. Having reported fevers and chills as well as nausea. Physical examination General: Nontoxic appearing Cardio: Regular rate and rhythm Pulmonary: Clear to auscultation bilaterally, no acute distress Abdominal: Abdomen nontender. No CVA tenderness bilaterally Neuro: No focal neurologic deficits I have greeted and performed a rapid initial assessment of this patient. A comprehensive ED assessment and evaluation of the patient, analysis of test results and completion of the medical decision making process will be conducted by additional ED providers. TRAVEL OUTSIDE OF THE [place] IN LAST 30 DAYS: No - Related Data Allergies/Adverse Reactions: latex Allergy (Verified 12/17/17 14:49) peanut Allergy (Verified 12/17/17 15:13) prednisone Allergy (Verified 12/17/17 14:49) sulfamethoxazole [From Bactrim] Allergy (Verified 12/17/17 14:49) trimethoprim [From Bactrim] Allergy (Verified 12/17/17 14:49) Past Medical History Renal/ Medical History: Denies: Hx Peritoneal Dialysis Past Surgical History: Reports: Hx Cholecystectomy, Hx Tonsillectomy - Immunizations Hx Diphtheria, Pertussis, Tetanus Vaccination: Yes Physical Exam - Vital signs Vitals: Temp Pulse Resp BP Pulse Ox 98.1 F 89 14 118/67 97 06/16/20 22:47 06/16/20 22:47 06/16/20 22:47 06/16/20 22:47 06/16/20 22:47 Course - Vital Signs Vital signs: Temp Pulse Resp BP Pulse Ox 98.1 F 89 14 118/67 97 06/16/20 22:47 06/16/20 22:47 06/16/20 22:47 06/16/20 22:47 06/16/20 22:47
[2020-06-17 00:45] LABS: ABSOLUTE LYMPHOCYTES (AUTO) 1.7 10^3/uL (0.5-4.7); ABSOLUTE MONOCYTES (AUTO) 0.9 10^3/uL (0.1-1.4); ABSOLUTE NEUT (AUTO) 6.7 10^3/uL (1.7-8.2); BASOPHILS % (AUTO) 0.3 % (0-2); EOSINOPHILS % (AUTO) 0.4 % (0-6); HEMOGLOBIN 14.8 g/dL (12.0-15.5); LYMPHOCYTES % (AUTO) 17.9 % (13-45); MEAN CORPUSCULAR HEMOGLOBIN 31.2 pg (27.0-33.4); MEAN CORPUSCULAR HGB CONC 34.5 g/dL (32.0-36.0); MEAN CORPUSCULAR VOLUME 91 fl (80-97); MONOCYTES % (AUTO) 9.8 % (3-13); PLATELET COUNT 241 10^3/uL (150-450); RED BLOOD COUNT 4.75 10^6/uL (3.72-5.28); RED CELL DISTRIBUTION WIDTH 13.6 % (11.5-14.0); SEGMENTED NEUTROPHILS % (AUTO) 71.6 % (42-78); TOTAL CELLS COUNTED % (AUTO) 100 %; WHITE BLOOD COUNT 9.4 10^3/uL (4.0-10.5)
[2020-06-17 01:21] LABS: APPEARANCE,URINE TURBID; BILIRUBIN,URINE NEGATIVE (NEGATIVE); COLOR,URINE YELLOW; GLUCOSE, URINE NEGATIVE (NEGATIVE); KETONES,URINE NEGATIVE (NEGATIVE); PROTEIN,URINE 100 mg/dL (NEGATIVE); URINE SPECIFIC GRAVITY 1.026
[2020-06-17 01:42] LABS: ALBUMIN 4.3 g/dL (3.5-5.0); ALKALINE PHOSPHATASE 71 U/L (38-126); ANION GAP 11 (5-19); ASPARTATE AMINO TRANSFERASE 27 U/L (14-36); BILIRUBIN,TOTAL 0.6 mg/dL (0.2-1.3); BLOOD UREA NITROGEN 6 mg/dL (7-20); CALCIUM 9.3 mg/dL (8.4-10.2); CARBON DIOXIDE 27 mmol/L (22-30); CHLORIDE 100 mmol/L (98-107); GLUCOSE 101 mg/dL (75-110); POTASSIUM 3.9 mmol/L (3.6-5.0); TOTAL PROTEIN 6.9 g/dL (6.3-8.2)
[2020-06-17] MEDS ORDERED: IBUPROFEN 600 MG TABLET PO ONE (07:30)
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
[2020-06-17] MEDS ORDERED: OXYCODONE HCL IR 5 MG TABLET PO ONE (07:48)
[2020-06-17] MEDS ORDERED: PROMETHAZINE HCL 25 MG TABLET PO ONE (07:48)
[2020-06-17 08:12] LABS: BACTERIA (WET MOUNT) 3+ BACTERIA SEEN; EPITHELIALS (WET MOUNT) 3+ EPITHELIALS SEEN; RBCS (WET MOUNT) 2+ RBCS SEEN; T.VAGINALIS (WET MOUNT) TRICHOMONAS SEEN; WBCS (WET MOUNT) 2+ WBCS SEEN; YEAST (WET MOUNT) NO YEAST SEEN
[2020-06-17] MEDS ORDERED: CEFTRIAXONE INJ 250 MG VIAL IM ONE (08:16)
[2020-06-17] MEDS ORDERED: LIDOCAINE 1% INJ-PF (10 MG/ML) 30 ML SDV INJ ONE (08:16)
[2020-06-17 09:43] LABS: CHLAM PCR NOT DETECTED (NOT DETECT)
[2020-06-17 10:12] VITALS: BP 102/64
== END 2020-06-17 10:31 | disposition home or self-care (01) ==
LOC: ER 22:26
DX: A59.09 Other urogenital trichomoniasis (principal); N39.0 Urinary tract infection, site not specified; R50.9 Fever, unspecified; R11.0 Nausea; R21 Rash and other nonspecific skin eruption; Z91.040 Latex allergy status; Z91.010 Allergy to peanuts; Z88.8 Allergy status to other drugs, medicaments and biological substances; Z88.1 Allergy status to other antibiotic agents
CPT/HCPCS: 99284; 96372; 36415; 87086; 87210; 85025; 81025; 80053; 81001; 87250; 87491; 87591; S0119; J3490 ×2; J0696